=== PATIENT | female | born 1945 | race Caucasian/White ===

== ENCOUNTER → 2016-11-19 | Outpatient (CLI) | payer MEDICARE, OTHER ==
[~2016-11-19] MED LIST: ALEVE220 MG PO; ALLOPURINOL100 MG PO; ALLOPURINOL300 M1 PO; ASPIRIN 81MG TA81 MG PO; ASPIRIN CHILDRE81 MG PO; COLESTIPOL1 GM PO; CYMBALTA30 MG PO; Ciprofloxacin250 MG OR; LORTAB 500 MG-71 TAB; LORTAB 500 MG-71 TAB PO; MULTI-VITAMIN1 EACH PO; NEXIUM40 MG/PACK PO; NORVASC 10MG. T10 MG PO; NORVASC 5MG. TAB5 MG PO; POTASSIUM CHLO20 ME2 PO; ZIAC 10 MG-6.251 TAB PO; ZIAC 2.5 MG-6.21 TAB PO; ZYRTEC 10MG TAB10 MG PO
[2016-11-19 11:43] LABS: HEMOGLOBIN 10.6 g/dL (12.2-16.2); LYMPH # 1.7 K/mm3 (0.7-4.5); LYMPH % 13.6 % (10-50.0)
[2016-11-19 14:01] LABS: BUN 19 mg/dL (7-18); GFR (ESTIMATED) 40 ML/MIN (59-)
== END ==
LOC: LAB 11:27
PROVIDERS: Nurse Practitioner Family
DX: M53.9 Dorsopathy, unspecified (principal); D64.9 Anemia, unspecified; I10 Essential (primary) hypertension; G89.29 Other chronic pain; R29.6 Repeated falls; N20.0 Calculus of kidney; E55.9 Vitamin D deficiency, unspecified

== ENCOUNTER → 2017-08-23 | Outpatient (CLI) | payer MEDICARE, OTHER ==
--- NOTE | 2017-08-25 09:02 | RADIOLOGY REPORT PS360 ---
CT CHEST W/O CONTRAST COMPARISON: CT scan of chest noncontrast 04/12/2016 HISTORY: Follow-up thoracic aortic aneurysm TECHNIQUE: Multiaxial scans obtained from the thoracic inlet the hemidiaphragms and were performed without IV contrast. Sagittal coronal reformats were evaluated as well. FINDINGS: The lung draper are well expanded. Again noted is mild aneurysmal dilatation of the thoracic aorta. At the level of the aortic arch the aorta measures 4.6 cm unchanged in size from the previous exam. The descending thoracic aorta measures 3.8 cm in diameter basically unchanged from previous exam. There is borderline cardio megaly with is no pulmonary congestion. There is no pneumonic infiltrate and is no pleural fluid. The superior mediastinum and bradly appear normal. There is a stable 3 mm nodule left lower lobe. There is a small hiatal hernia. 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
== END ==
LOC: RAD 14:08
DX: I71.2 Thoracic aortic aneurysm, without rupture (principal)